=== PATIENT | male | born 1995 | race Caucasian/White ===

== ENCOUNTER 2023-10-10 21:59 | Emergency (ER) | payer SELFPAY ==
[~2023-10-10] VITALS: Ht 170.2 cm; Wt 83.0 kg
[2023-10-10 22:09] VITALS: BP 140/92; PULSE 98; RESP 18; TEMP 98.4; O2SAT 98
[2023-10-10] MEDS: LIDOCAINE HCL/PF 1% 10 MG/ML 5ML VIAL INFIL ONE (22:30)
[2023-10-10] MEDS: BACITRACIN ZINC OINT UDPKT TOP ONE (22:30)
[2023-10-10] MEDS: TETANUS, DIPHTHERIA, PERTUSSIS VAC/PF 0.5ML (>10YR OLD) IM ONE (23:52)
== END 2023-10-11 00:16 | disposition home or self-care (01) ==
LOC: ER 21:59
DX: S61.213A Laceration without foreign body of left middle finger without damage to nail, initial encounter (principal); Z88.0 Allergy status to penicillin; X58.XXXA Exposure to other specified factors, initial encounter; Y93.89 Activity, other specified; Y92.89 Other specified places as the place of occurrence of the external cause; Y99.8 Other external cause status
CPT/HCPCS: 73140; 90715; 90471; 99283; Z7610 ×3

== ENCOUNTER 2023-10-11 23:27 | Emergency (ER) | payer SELFPAY ==
[~2023-10-11] VITALS: Ht 170.2 cm; Wt 84.0 kg
[2023-10-11 23:43] VITALS: BP 134/87; PULSE 77; RESP 16; TEMP 98
== END 2023-10-12 04:00 | disposition left against medical advice (07) ==
LOC: ER 23:27
DX: S61.218A Laceration without foreign body of other finger without damage to nail, initial encounter (principal); Z53.21 Procedure and treatment not carried out due to patient leaving prior to being seen by health care provider; X58.XXXA Exposure to other specified factors, initial encounter; Y93.89 Activity, other specified; Y92.89 Other specified places as the place of occurrence of the external cause; Y99.8 Other external cause status